=== PATIENT | male | born 1990 | race Hispanic/Latino ===

== ENCOUNTER 2018-02-24 20:59 | Emergency (ER) | payer BC ==
[2018-02-24] MEDS ORDERED: MORPHINE IV ONE (21:17)
[2018-02-24] MEDS ORDERED: BOOSTRIX IM ONE (21:17)
[2018-02-24] MEDS ORDERED: ZOFRAN IV ONE (21:17)
[2018-02-24 22:27] LABS: Basophils # (Auto) 0.1 K/mm3 (0.0-0.1); Basophils % (Auto) 0.3 % (0.0-1.8); Eosinophils # (Auto) 0.3 K/mm3 (0.0-0.4); Eosinophils % (Auto) 1.7 % (0.0-4.3); Hematocrit 46.9 % (35.5-45.6); Hemoglobin 16.5 gm/dl (11.8-15.2); Lymphocytes # (Auto) 1.6 K/mm3 (1.2-5.4); Lymphocytes % (Auto) 9.5 % (13.4-35.0); Mean Corpuscular HGB Conc 35 % (32-34); Mean Corpuscular Hemoglobin 32 pg (28-32); Mean Corpuscular Volume 92 fl (84-94); Monocytes # (Auto) 1.1 K/mm3 (0.0-0.8); Monocytes % (Auto) 6.5 % (0.0-7.3); Platelet Count 250 K/mm3 (140-440); Red Blood Count 5.12 M/mm3 (3.65-5.03); Red Cell Distribution Width 13.3 % (13.2-15.2)
[2018-02-24] MEDS ORDERED: ceFAZolin 2 GM in NACL 0.9% 100 ML IV ONE (22:30)
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
[2018-02-24 23:04] LABS: Alanine Aminotransferase 42 units/L (7-56); Albumin 3.6 g/dL (3.9-5); BUN/Creatinine Ratio 12; Blood Urea Nitrogen 15 mg/dL (9-20); Calcium 8.6 mg/dL (8.4-10.2); Hemolysis Index 15
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
[2018-02-25] MEDS ORDERED: NACL 0.9% IR ONE (01:11)
[2018-02-25] MEDS ORDERED: NACL 0.9% 500 ML IR ONE (01:14)
[2018-02-25 01:21] LABS: Hematocrit 44.7 % (35.5-45.6); Hemoglobin 15.5 gm/dl (11.8-15.2)
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
[2018-02-25 02:21] VITALS: BP 97/49
== END 2018-02-25 02:22 | disposition home or self-care (01) ==
LOC: ED 20:59
DX: S71.131A Puncture wound without foreign body, right thigh, initial encounter (principal); S81.031A Puncture wound without foreign body, right knee, initial encounter; K50.90 Crohn's disease, unspecified, without complications; F41.9 Anxiety disorder, unspecified; Z90.49 Acquired absence of other specified parts of digestive tract; W34.09XA Accidental discharge from other specified firearms, initial encounter; Y93.89 Activity, other specified; Y92.89 Other specified places as the place of occurrence of the external cause; Y99.8 Other external cause status
CPT/HCPCS: 36415; 73552; 73590; 73706; 80053; 85014; 85018; 85025; 90471; 90715; 96365; 96375; 99291; J0690; J2270; J2405; Q9967